=== PATIENT | female | born 1980 | race African-American/Black ===

== ENCOUNTER 2016-07-05 20:29 | Emergency (ER) | payer OTHER ==
[~2016-07-05] VITALS: Ht 167.6 cm; Wt 52.2 kg
[~2016-07-05 20:29] MED LIST: IBUP-1610 PO; MULTI VITAMINS PO
[2016-07-05 21:08] LABS: BASOPHILS % (AUTO) 0.6 % (0.0-2.0); EOSINOPHILS # (AUTO) 0.1 K/uL (0.0-0.7); EOSINOPHILS % (AUTO) 1.5 % (0.0-7.0); HEMATOCRIT 35.9 % (37.0-47.0); HEMOGLOBIN 12.1 g/dL (12.0-16.0); LYMPHOCYTES # (AUTO) 4.3 K/uL (0.8-4.8); LYMPHOCYTES % (AUTO) 55.6 % (20.5-51.5); MEAN CORPUSCULAR HEMOGLOBIN 29.6 uug (27.0-31.0); MEAN CORPUSCULAR HGB CONC 34 g/dL (32.0-37.0); MEAN CORPUSCULAR VOLUME 87.6 fL (81.0-99.0); MONOCYTES # (AUTO) 0.6 K/uL (0.1-1.30); MONOCYTES % (AUTO) 7.4 % (0.0-11.0); NEUTROPHILS # (AUTO) 2.7 K/uL (1.8-8.9); NEUTROPHILS % (AUTO) 34.9 % (38.5-71.5); PLATELET COUNT (AUTO) 220 K/uL (150-450); RED BLOOD CELL COUNT(AUTO) 4.09 MIL/uL (4.20-5.40); RED CELL DISTRIBUTION WIDTH 13.7 % (11.5-14.5); WHITE BLOOD COUNT (AUTO) 7.7 K/uL (4.0-11.2)
[2016-07-05 21:11] LABS: CALCIUM 9.5 mg/dL (8.5-10.1); CREATININE 0.9 mg/dL (0.6-1.3); POTASSIUM 4.2 mmol/L (3.5-5.1)
[2016-07-05 21:23] LABS: BILIRUBIN,DIRECT 0.1 mg/dL (0.0-0.2); BILIRUBIN,TOTAL 0.5 mg/dL (0.2-1.0); TOTAL PROTEIN, SERUM 7.3 g/dL (6.4-8.2)
--- NOTE | 2016-07-05 22:23 | NUR ---
Patient is deciding if she would like to proceed with CT imaging, attempting to call her family members for advice. Per patient, will not be able to decide for 20 minutes unil her mother calls back. MD aware of reason for delay.
[2016-07-05] MEDS ORDERED: NORMAL SALINE FLUSH 10 ML DISP.SYRIN ONE (22:24)
[2016-07-05] MEDS ORDERED: IV NORMAL SALINE 250 ML IV ONE (22:24)
[2016-07-05] MEDS ORDERED: IOHEXOL 350 100 ML INFUS..BTL ONE (22:24)
[2016-07-05 22:47] LABS: *BILIRUBIN,URIN NEGATIVE (NEGATIVE); *BLOOD, URINE Trace-intact (NEGATIVE); *CLARITY,URINE CLEAR (CLEAR); *COLOR,URINE YELLOW (YELLOW); *KETONES,URINE NEGATIVE (NEGATIVE); *PROTEIN,URINE NEGATIVE (NEGATIVE); *UROBILINOGEN,URINE 0.2 E.U./dl (NORMAL); LEUKOCYTE ESTERASE ,URINE NEGATIVE (NEGATIVE); NITRITE, URINE NEGATIVE (NEGATIVE); UGLUCOSE NEGATIVE (NEGATIVE)
[2016-07-05 22:50] LABS: *URINE HCG, QUAL NEGATIVE (NEGATIVE)
--- NOTE | 2016-07-05 22:51 | NUR ---
Patient taken to CT imaging.
[2016-07-05 22:53] LABS: BACTERIA,URINE NONE SEEN /HPF (NONE SEEN); SQUAMOUS EPITHELIAL CELL,UR FEW /HPF (NONE SEEN); WBC,URINE 0-3 /HPF (0-3)
--- NOTE | 2016-07-05 23:16 | NUR ---
Returned from CT, stable.
[2016-07-05] MEDS ORDERED: IV NORMAL SALINE 1000 ML BAG IV ONE (23:30)
--- NOTE | 2016-07-06 00:54 | NUR ---
Patient discharged to home in stable conditon. Written and verbal after care instructions given. Patient verbalizes understanding of instructions. Ambulated from ER with stable gait. All belongings with patient.
[2016-07-06 00:57] VITALS: BP 131/75
== END 2016-07-06 00:58 | disposition home or self-care (01) ==
LOC: ER 20:31
DX: R07.9 Chest pain, unspecified (principal); F41.9 Anxiety disorder, unspecified; F17.210 Nicotine dependence, cigarettes, uncomplicated
CPT/HCPCS: 36415 ×2; 71010; 71275; 80048; 80076; 81001; 83880; 84484 ×2; 84703; 85025; 85379; 93005; 96360; 99285; A4663; J3490; J7050; Q9967; 70030-TC

== ENCOUNTER 2017-01-25 00:47 | Emergency (ER) | payer MEDICAID, OTHER ==
[~2017-01-25] VITALS: Ht 170.2 cm; Wt 56.7 kg
[2017-01-25] MEDS ORDERED: ASPIRIN 81 MG TAB.CHEW PO ONE (01:15)
[2017-01-25] MEDS ORDERED: ASPIRIN 81 MG TAB.CHEW ONE (01:33)
[2017-01-25 01:34] LABS: BASOPHILS % (AUTO) 0.5 % (0.0-2.0); EOSINOPHILS # (AUTO) 0.2 K/uL (0.0-0.7); EOSINOPHILS % (AUTO) 1.8 % (0.0-7.0); HEMATOCRIT 37.3 % (37-47); HEMOGLOBIN 12.7 G/DL (12.0-16.0); LYMPHOCYTES # (AUTO) 4.7 K/UL (0.8-4.8); MEAN CORPUSCULAR HGB CONC 34 g/dL (32.0-37.0); MEAN CORPUSCULAR VOLUME 88.2 FL (81.0-99.0); MONOCYTES # (AUTO) 0.7 K/UL (0.1-1.30); MONOCYTES % (AUTO) 7.8 % (0.0-11.0); NEUTROPHILS # (AUTO) 3.9 K/UL (1.8-8.9); NEUTROPHILS % (AUTO) 40.9 % (38.5-71.5); PLATELET COUNT (AUTO) 181 K/UL (150-450); RED BLOOD CELL COUNT(AUTO) 4.23 MIL/UL (4.2-5.4); WHITE BLOOD COUNT (AUTO) 9.5 K/UL (4.0-11.2)
[2017-01-25 01:40] LABS: CREATININE 0.8 mg/dL (0.6-1.3); POTASSIUM 4.4 mmol/L (3.5-5.1)
[2017-01-25 01:45] LABS: BILIRUBIN,DIRECT 0.2 mg/dL (0.0-0.2); BILIRUBIN,TOTAL 0.7 mg/dL (0.2-1.0); TOTAL PROTEIN, SERUM 7.7 g/dL (6.4-8.2)
[2017-01-25 02:04] VITALS: BP 121/87
== END 2017-01-25 02:05 | disposition home or self-care (01) ==
LOC: ER 00:47
DX: M79.622 Pain in left upper arm (principal); R07.89 Other chest pain; F17.200 Nicotine dependence, unspecified, uncomplicated
CPT/HCPCS: 36415; 80048; 80076; 84484; 85025; 93005; 99285; 99406; A4663; 70030-TC

== ENCOUNTER 2018-05-18 02:25 | Emergency (ER) | payer BC, MEDICAID, OTHER ==
[~2018-05-18] VITALS: Ht 167.6 cm; Wt 56.7 kg
[~2018-05-18 02:25] MED LIST changes: -IBUP-1610 PO; +IBUP-1627 PO
--- NOTE | 2018-05-18 02:39 | NUR ---
Dr. Jean at bedside for MSE.
[2018-05-18] MEDS ORDERED: IBUPROFEN 600 MG TABLET PO ONE (02:45)
[2018-05-18] MEDS ORDERED: IBUPROFEN 600 MG TABLET ONE (02:47)
--- NOTE | 2018-05-18 02:48 | NUR ---
Xray at bedside.
--- NOTE | 2018-05-18 03:00 | NUR ---
Patient discharged to home in stable conditon. Written and verbal after care instructions given. Patient verbalizes understanding of instructions. Patient ambulated out of ER with steady gait, no acute signs of distress, VSS, all belongings taken.
[2018-05-18 03:01] VITALS: BP 111/87
== END 2018-05-18 03:02 | disposition home or self-care (01) ==
LOC: ER 02:25
DX: M94.0 Chondrocostal junction syndrome [Tietze] (principal); F17.200 Nicotine dependence, unspecified, uncomplicated; Z79.1 Long term (current) use of non-steroidal anti-inflammatories (NSAID); Z79.899 Other long term (current) drug therapy
CPT/HCPCS: 71045; 93005; A4663

== ENCOUNTER 2018-10-24 09:13 | Emergency (ER) | payer BC, OTHER ==
[~2018-10-24] VITALS: Ht 167.6 cm; Wt 56.7 kg
--- NOTE | 2018-10-24 09:43 | NUR ---
Pt states feeling bertter and not as anxious as earlier.
--- NOTE | 2018-10-24 09:52 | NUR ---
Patient is resting comfortably in bed with eyes closed, NAD noted.
--- NOTE | 2018-10-24 10:01 | NUR ---
Dr Fonseca at the bedside for MSE.
[2018-10-24] MEDS: LORAZEPAM 0.5 MG TABLET PO ONE ×2 (10:12→11:09)
[2018-10-24] MEDS ORDERED: LORAZEPAM 1 MG TABLET ONE (10:14)
[2018-10-24 10:38] LABS: BASOPHILS % (AUTO) 0.6 % (0.0-2.0); EOSINOPHILS % (AUTO) 0.6 % (0.0-7.0); HEMATOCRIT 34.4 % (31.2-41.9); HEMOGLOBIN 11.6 g/dL (10.9-14.3); LYMPHOCYTES # (AUTO) 2.7 K/uL (20.0-40.0); MEAN CORPUSCULAR HEMOGLOBIN 28.9 uug (24.7-32.8); MEAN CORPUSCULAR HGB CONC 34 g/dL (32.3-35.6); MONOCYTES # (AUTO) 0.5 K/uL (2.0-10.0); MONOCYTES % (AUTO) 8.2 % (0.0-11.0); NEUTROPHILS % (AUTO) 47.6 % (38.5-71.5); PLATELET COUNT (AUTO) 169 K/uL (179-408); WHITE BLOOD COUNT (AUTO) 6.4 K/uL (3.8-11.8)
[2018-10-24 10:46] LABS: CREATININE 0.8 mg/dL (0.6-1.3); POTASSIUM 3.8 mmol/L (3.5-5.1)
--- NOTE | 2018-10-24 11:26 | NUR ---
Patient discharged to home in stable conditon. Written and verbal after care instructions given. Patient verbalizes understanding of instructions.
[2018-10-24 11:27] VITALS: BP 113/78
== END 2018-10-24 11:27 | disposition home or self-care (01) ==
LOC: ER 09:13
DX: F41.9 Anxiety disorder, unspecified (principal); F12.10 Cannabis abuse, uncomplicated; F17.210 Nicotine dependence, cigarettes, uncomplicated; Z79.1 Long term (current) use of non-steroidal anti-inflammatories (NSAID); Z79.899 Other long term (current) drug therapy
CPT/HCPCS: 36415; 85025; 93005; A4663

== ENCOUNTER 2019-03-04 23:49 | Emergency (ER) | payer OTHER ==
[~2019-03-04] VITALS: Ht 170.2 cm; Wt 55.3 kg
[2019-03-05] MEDS ORDERED: ONDANSETRON 4 MG/2 ML VIAL ONE (00:25)
[2019-03-05] MEDS ORDERED: ONDANSETRON 4 MG/2 ML VIAL IV ONE (00:30)
[2019-03-05 00:38] LABS: BASOPHILS # (AUTO) 0.1 K/uL (0.0-8.0); BASOPHILS % (AUTO) 1.3 % (0.0-2.0); EOSINOPHILS # (AUTO) 0.1 K/uL (0.0-0.7); EOSINOPHILS % (AUTO) 0.8 % (0.0-7.0); HEMATOCRIT 36.2 % (31.2-41.9); HEMOGLOBIN 11.9 g/dL (10.9-14.3); MEAN CORPUSCULAR HEMOGLOBIN 28.7 uug (24.7-32.8); MEAN CORPUSCULAR HGB CONC 33 g/dL (32.3-35.6); MEAN CORPUSCULAR VOLUME 87.2 fL (75.5-95.3); MONOCYTES # (AUTO) 0.7 K/uL (2.0-10.0); MONOCYTES % (AUTO) 8.8 % (0.0-11.0); NEUTROPHILS % (AUTO) 38.1 % (38.5-71.5); PLATELET COUNT (AUTO) 192 K/uL (179-408); RED BLOOD CELL COUNT(AUTO) 4.15 MIL/uL (3.63-4.92); WHITE BLOOD COUNT (AUTO) 7.8 K/uL (3.8-11.8)
[2019-03-05 00:50] LABS: ALANINE AMINOTRANSFERASE 14 U/L (14-59); ALKALINE PHOSPHATASE 65 U/L (50-136); ASPARTATE AMINOTRANSFERASE 16 U/L (15-37); BILIRUBIN,DIRECT 0.2 mg/dL (0.0-0.2); BILIRUBIN,TOTAL 0.6 mg/dL (0.2-1.0); CARBON DIOXIDE 27 mmol/L (21-32); CHLORIDE 103 mmol/L (98-107); CREATININE 0.6 mg/dL (0.6-1.3); GLUCOSE 87 mg/dL (74-106); LIPASE 140 U/L (73-393); TOTAL PROTEIN, SERUM 7.1 g/dL (6.4-8.2); UREA NITROGEN, BLOOD 10 mg/dL (7-18)
[2019-03-05] MEDS ORDERED: HYDROMORPHONE 1 MG/1 ML DISP.SYRIN ONE (01:06)
[2019-03-05] MEDS ORDERED: HYDROMORPHONE 1 MG/1 ML DISP.SYRIN IV ONE (01:15)
--- NOTE | 2019-03-05 02:28 | NUR ---
Pt resting comfortably in bed. Denies any pain or discomfort at this time. States she feels better. Pending pt to go to CT scan.
--- NOTE | 2019-03-05 02:40 | NUR ---
Pt went to radiology dept for CT scan. Consent for contrast obtained, signed by pt.
[2019-03-05] MEDS ORDERED: HYDROMORPHONE HCL 2 MG TABLET PO ONE (02:45)
[2019-03-05] MEDS ORDERED: IOHEXOL 300MG/ML 100 ML INFUS..BTL ONE (02:48)
--- NOTE | 2019-03-05 04:30 | NUR ---
IV removed. Catheter intact and site benign. Pressure and 4x4 gauze applied to site. No bleeding noted.
--- NOTE | 2019-03-05 04:35 | NUR ---
Patient discharged to home in stable conditon. Written and verbal after care instructions given. Patient verbalizes understanding of instructions.
[2019-03-05 04:37] VITALS: BP 103/57
== END 2019-03-05 04:37 | disposition home or self-care (01) ==
LOC: ER 23:49
DX: R10.32 Left lower quadrant pain (principal); F41.9 Anxiety disorder, unspecified; F17.210 Nicotine dependence, cigarettes, uncomplicated; Z71.6 Tobacco abuse counseling; Z79.1 Long term (current) use of non-steroidal anti-inflammatories (NSAID); Z79.899 Other long term (current) drug therapy
CPT/HCPCS: 36415; 74177; 80048; 80076; 83690; 84702; 85025; 96374; 96375; 99284; 99406; J1170; J2405; Q9967; A4663; J7030

== ENCOUNTER 2019-04-25 21:58 | Emergency (ER) | payer OTHER, BC ==
[~2019-04-25] VITALS: Ht 170.2 cm; Wt 56.7 kg
--- NOTE | 2019-04-25 22:20 | NUR ---
Dr. Sims at bedside for MSE.
--- NOTE | 2019-04-25 22:45 | NUR ---
Pt refused Xray, made aware.
[2019-04-25 22:49] LABS: CREATININE 0.8 mg/dL (0.6-1.3); POTASSIUM 3.8 mmol/L (3.5-5.1)
[2019-04-25 22:51] LABS: BASOPHILS # (AUTO) 0.1 K/uL (0.0-8.0); BASOPHILS % (AUTO) 0.8 % (0.0-2.0); EOSINOPHILS # (AUTO) 0.1 K/uL (0.0-0.7); EOSINOPHILS % (AUTO) 1.2 % (0.0-7.0); HEMATOCRIT 37.9 % (31.2-41.9); HEMOGLOBIN 12.4 g/dL (10.9-14.3); LYMPHOCYTES # (AUTO) 3.6 K/uL (20.0-40.0); LYMPHOCYTES % (AUTO) 52.3 % (20.5-51.5); MEAN CORPUSCULAR HGB CONC 33 g/dL (32.3-35.6); MEAN CORPUSCULAR VOLUME 88.3 fL (75.5-95.3); MONOCYTES # (AUTO) 0.6 K/uL (2.0-10.0); MONOCYTES % (AUTO) 8.5 % (0.0-11.0); NEUTROPHILS # (AUTO) 2.6 K/uL (1.8-8.9); NEUTROPHILS % (AUTO) 37.2 % (38.5-71.5); PLATELET COUNT (AUTO) 178 K/uL (179-408); RED BLOOD CELL COUNT(AUTO) 4.29 MIL/uL (3.63-4.92); WHITE BLOOD COUNT (AUTO) 6.9 K/uL (3.8-11.8)
[2019-04-25 22:54] LABS: BILIRUBIN,DIRECT 0.1 mg/dL (0.0-0.2); BILIRUBIN,TOTAL 0.5 mg/dL (0.2-1.0); TOTAL PROTEIN, SERUM 7.2 g/dL (6.4-8.2)
[2019-04-25] MEDS ORDERED: ASPIRIN 325 MG TABLET ONE (23:30)
[2019-04-25] MEDS ORDERED: ASPIRIN 325 MG TABLET PO ONE (23:30)
--- NOTE | 2019-04-25 23:30 | NUR ---
Pt out of ER for xray.
--- NOTE | 2019-04-25 23:41 | NUR ---
Pt back to ER from Xray.
[2019-04-26] MEDS ORDERED: IOHEXOL 350 100 ML INFUS..BTL ONE (00:51)
[2019-04-26] MEDS ORDERED: IV NORMAL SALINE 250 ML IV ONE (00:51)
[2019-04-26] MEDS ORDERED: SWABABLE VALVE TRANSFER SET EA MC ONE (00:51)
--- NOTE | 2019-04-26 00:59 | NUR ---
Pt out of ER for CTA.
--- NOTE | 2019-04-26 01:20 | NUR ---
Pt back to ER from CTA.
--- NOTE | 2019-04-26 03:09 | NUR ---
Patient discharged to home in stable conditon. Written and verbal after care instructions given. Patient verbalizes understanding of instructions. Pt ambulated out of ER with steady gait, no acute signs of distress, VSS, all belongings taken, IV site discontinued.
[2019-04-26 03:29] VITALS: BP 100/70
== END 2019-04-26 03:29 | disposition home or self-care (01) ==
LOC: ER 22:00
DX: R07.89 Other chest pain (principal); F41.9 Anxiety disorder, unspecified; F10.10 Alcohol abuse, uncomplicated; F17.210 Nicotine dependence, cigarettes, uncomplicated; Z91.018 Allergy to other foods
CPT/HCPCS: 36415 ×2; 71046; 71275; 80048; 80076; 84484 ×2; 85025; 85379; 93005; 99284; 99406; Q9967; 70030-TC; A4663; J7050

== ENCOUNTER 2020-07-28 08:33 | Emergency (ER) | payer BC, OTHER ==
[~2020-07-28] VITALS: Ht 167.6 cm; Wt 56.7 kg
[2020-07-28 09:12] LABS: BASOPHILS % (AUTO) 0.6 % (0.0-2.0); EOSINOPHILS # (AUTO) 0.1 K/uL (0.0-0.7); HEMATOCRIT 34.2 % (31.2-41.9); HEMOGLOBIN 11.6 g/dL (10.9-14.3); LYMPHOCYTES # (AUTO) 3.8 K/uL (20.0-40.0); LYMPHOCYTES % (AUTO) 48.3 % (20.5-51.5); MEAN CORPUSCULAR HEMOGLOBIN 30.5 uug (24.7-32.8); MEAN CORPUSCULAR HGB CONC 34 g/dL (32.3-35.6); MEAN CORPUSCULAR VOLUME 90.1 fL (75.5-95.3); MONOCYTES # (AUTO) 0.7 K/uL (2.0-10.0); MONOCYTES % (AUTO) 8.4 % (0.0-11.0); NEUTROPHILS # (AUTO) 3.2 K/uL (1.8-8.9); NEUTROPHILS % (AUTO) 41.7 % (38.5-71.5); PLATELET COUNT (AUTO) 206 K/uL (179-408); WHITE BLOOD COUNT (AUTO) 7.8 K/uL (3.8-11.8)
[2020-07-28 09:21] LABS: CARBON DIOXIDE 26 mmol/L (21-32); CHLORIDE 106 mmol/L (98-107); CREATININE 0.7 mg/dL (0.6-1.3); GLUCOSE 93 mg/dL (74-106); UREA NITROGEN, BLOOD 5 mg/dL (7-18)
[2020-07-28 09:27] LABS: ALANINE AMINOTRANSFERASE 24 U/L (14-59); ALKALINE PHOSPHATASE 68 U/L (50-136); ASPARTATE AMINOTRANSFERASE 22 U/L (15-37); BILIRUBIN,DIRECT 0.1 mg/dL (0.0-0.2); BILIRUBIN,TOTAL 0.5 mg/dL (0.2-1.0); LIPASE 103 U/L (73-393); TOTAL PROTEIN, SERUM 6.7 g/dL (6.4-8.2)
--- NOTE | 2020-07-28 09:53 | NUR ---
Gave pt d/c instructions, pt verbalized understanding.
[2020-07-28 09:55] VITALS: BP 106/62
== END 2020-07-28 09:56 | disposition home or self-care (01) ==
LOC: ER 08:33
DX: R10.11 Right upper quadrant pain (principal); R07.89 Other chest pain; R79.1 Abnormal coagulation profile; F17.210 Nicotine dependence, cigarettes, uncomplicated; Z91.018 Allergy to other foods; F41.9 Anxiety disorder, unspecified
CPT/HCPCS: 36415; 70030-TC; 83690; 85025; 93005; A4663

== ENCOUNTER 2020-08-13 03:44 | Emergency (ER) | payer BC ==
[~2020-08-13] VITALS: Ht 167.6 cm; Wt 56.7 kg
--- NOTE | 2020-08-13 04:00 | NUR ---
MD Hahn in room to do MSE.
[2020-08-13 04:25] LABS: BASOPHILS % (AUTO) 0.6 % (0.0-2.0); EOSINOPHILS # (AUTO) 0.2 K/uL (0.0-0.7); EOSINOPHILS % (AUTO) 2.3 % (0.0-7.0); HEMATOCRIT 39.1 % (31.2-41.9); HEMOGLOBIN 13.1 g/dL (10.9-14.3); LYMPHOCYTES # (AUTO) 3.9 K/uL (20.0-40.0); LYMPHOCYTES % (AUTO) 50.3 % (20.5-51.5); MEAN CORPUSCULAR HEMOGLOBIN 30.2 uug (24.7-32.8); MEAN CORPUSCULAR HGB CONC 34 g/dL (32.3-35.6); MEAN CORPUSCULAR VOLUME 89.8 fL (75.5-95.3); MONOCYTES # (AUTO) 0.8 K/uL (2.0-10.0); NEUTROPHILS # (AUTO) 2.8 K/uL (1.8-8.9); NEUTROPHILS % (AUTO) 36.8 % (38.5-71.5); PLATELET COUNT (AUTO) 195 K/uL (179-408); RED BLOOD CELL COUNT(AUTO) 4.36 MIL/uL (3.63-4.92); WHITE BLOOD COUNT (AUTO) 7.7 K/uL (3.8-11.8)
[2020-08-13 04:26] LABS: CREATININE 0.8 mg/dL (0.6-1.3); POTASSIUM 4.2 mmol/L (3.5-5.1)
[2020-08-13 04:33] LABS: BILIRUBIN,DIRECT 0.1 mg/dL (0.0-0.2); BILIRUBIN,TOTAL 0.4 mg/dL (0.2-1.0); TOTAL PROTEIN, SERUM 7.3 g/dL (6.4-8.2)
[2020-08-13 04:35] LABS: *BILIRUBIN,URIN NEGATIVE (NEGATIVE); *BLOOD, URINE 2+ (NEGATIVE); *CLARITY,URINE CLEAR (CLEAR); *COLOR,URINE YELLOW (YELLOW); *KETONES,URINE NEGATIVE (NEGATIVE); *UROBILINOGEN,URINE 0.2 E.U./dl (NORMAL); LEUKOCYTE ESTERASE ,URINE NEGATIVE (NEGATIVE); NITRITE, URINE NEGATIVE (NEGATIVE); PH,URINE 5.5 (5.0-8.0); UGLUCOSE NEGATIVE (NEGATIVE)
[2020-08-13 04:41] LABS: BACTERIA,URINE FEW /HPF (NONE SEEN); MUCUS,URINE FEW /LPF (0-FEW); SQUAMOUS EPITHELIAL CELL,UR MANY /HPF (NONE SEEN); URINE AMORPHOUS URATE MODERATE /HPF
--- NOTE | 2020-08-13 04:48 | NUR ---
Patient resting in room, looking at environment, no acute distress noted.
[2020-08-13] MEDS ORDERED: IV NORMAL SALINE 250 ML IV ONE (05:05)
[2020-08-13] MEDS ORDERED: SWABABLE VALVE TRANSFER SET EA MC ONE (05:05)
[2020-08-13] MEDS ORDERED: IOHEXOL 350 100 ML INFUS..BTL ONE (05:05)
--- NOTE | 2020-08-13 05:10 | NUR ---
Pt out of ER for CT.
[2020-08-13] MEDS ORDERED: NAPR500T6 PO (06:38)
--- NOTE | 2020-08-13 07:08 | NUR ---
Pt received from [facility] THUMRAN In RM 1A. No acute distress. Denies pain at this time.
--- NOTE | 2020-08-13 07:25 | NUR ---
Per Dr. Webster pt stable for discharge. DC instructions and rx given and reviewed with patient. Verbalized understanding. IV dc'd noted with tip intact. Left ER in stable condition.
[2020-08-13 07:33] VITALS: BP 103/68
== END 2020-08-13 07:33 | disposition home or self-care (01) ==
LOC: ER 03:45
DX: R10.13 Epigastric pain (principal); D25.9 Leiomyoma of uterus, unspecified; K76.89 Other specified diseases of liver; F41.9 Anxiety disorder, unspecified; Z91.018 Allergy to other foods; F17.210 Nicotine dependence, cigarettes, uncomplicated
CPT/HCPCS: 36415; 71275; 74174; 80048; 80076; 81001; 83690; 84484; 84702; 85025; 85379; 85730; 87086; 93005; 99285; Q9967; 70030-TC; A4663; J7050

== ENCOUNTER 2020-09-30 23:25 | Emergency (ER) | payer BC ==
[~2020-09-30] VITALS: Ht 167.6 cm; Wt 54.4 kg
[~2020-09-30 23:25] MED LIST changes: -IBUP-1627 PO; -MULTI VITAMINS PO; +NAPR500T6 PO
--- NOTE | 2020-09-30 23:54 | NUR ---
Dr. Sims at bedside for MSE.
[2020-10-01] MEDS ORDERED: CEPH250C PO (00:15)
--- NOTE | 2020-10-01 00:19 | NUR ---
Patient discharged to home in stable condition. Written and verbal after care instructions given. Patient verbalizes understanding of instructions. Stressed follow up or return to ER for worsening s/s. Patient out of ER with steady gait, no acute signs of distress, VSS, all belongings taken.
[2020-10-01 00:29] VITALS: BP 112/62
== END 2020-10-01 00:29 | disposition home or self-care (01) ==
LOC: ER 23:28
DX: S50.312A Abrasion of left elbow, initial encounter (principal); L03.114 Cellulitis of left upper limb; W45.8XXA Other foreign body or object entering through skin, initial encounter; Y92.89 Other specified places as the place of occurrence of the external cause
CPT/HCPCS: 93005; A4663

== ENCOUNTER 2022-08-20 16:34 | Emergency (ER) | payer BC ==
[~2022-08-20] VITALS: Ht 170.2 cm; Wt 63.5 kg
[~2022-08-20 16:34] MED LIST changes: +CEPH250C PO
--- NOTE | 2022-08-20 17:30 | NUR ---
PT NOT IN WAITING ROOM WHEN CALLED.
--- NOTE | 2022-08-20 17:45 | NUR ---
seen and examined by
--- NOTE | 2022-08-20 18:00 | NUR ---
urine collected and sent to lab
[2022-08-20 18:12] LABS: *URINE HCG, QUAL NEGATIVE (NEGATIVE)
[2022-08-20 19:11] LABS: *AMPHETAMINE, URINE NEGATIVE (NEGATIVE); *CANNABINOID, URINE NEGATIVE (NEGATIVE); *COCCAINE, URINE NEGATIVE (NEGATIVE); *PHENCYCLIDINE SCREEN,URINE NEGATIVE (NEGATIVE)
--- NOTE | 2022-08-20 19:38 | NUR ---
Patient discharged to home in stable condition. Written and verbal after care instructions given by Dr Anderson. Patient verbalizes understanding of instructions. Stressed follow up or return to ER for worsening s/s.
== END 2022-08-20 19:45 | disposition home or self-care (01) ==
LOC: ER 16:36
DX: T50.901A Poisoning by unspecified drugs, medicaments and biological substances, accidental (unintentional), initial encounter (principal); F17.210 Nicotine dependence, cigarettes, uncomplicated; Z91.018 Allergy to other foods; Z79.899 Other long term (current) drug therapy; Y92.89 Other specified places as the place of occurrence of the external cause
CPT/HCPCS: 84703; A4663